=== PATIENT | male | born 1955 | race Caucasian/White ===

== ENCOUNTER 2017-08-10 10:30 | Observation (INO) ==
--- NOTE | 2017-08-10 11:00 | Emergency Department Note ---
Disposition Clinical Impression: Chest pain, Pulmonary nodule Disposition: Admitted As Inpatient Condition: Undetermined General Adult HPI - General Chief complaint: ED Chest Pain Stated complaint: CP Time Seen by Provider: 08/10/17 10:54 Source: patient, family Limitations: no limitations - History of Present Illness Pain Scale: 5 - Related Data Home Medications Medication Instructions Recorded Confirmed Carvedilol [Coreg] 6.25 mg PO BID 10/15/15 08/10/17 Aspirin 325 mg PO BID 08/10/17 08/10/17 Allergies Allergy/AdvReac Type Severity Reaction Status Date / Time Penicillins Allergy Rash Verified 08/10/17 10:35 Past Medical History - Past Medical History Medical history: Reports: coronary artery disease, hyperlipidemia, hypertension , kidney stones, myocardial infarction, valvular heart disease Surgical history: Reports: other Psychiatric history: Reports: no psych history - Social History Smoking Status: Former smoker Smokeless Tobacco Status: No Alcohol use: Reports: none Drug use: Reports: none Physical Exam - General Limitations: no limitations General appearance: alert, in no apparent distress Course Vital Signs Temperature 97.7 F 08/10/17 10:35 Pulse Rate 71 08/10/17 10:35 Respiratory Rate 16 08/10/17 10:35 Blood Pressure 175/91 08/10/17 10:35 O2 Sat by Pulse Oximetry 96 08/10/17 10:35 Temperature 98.7 F 08/10/17 15:43 Pulse Rate 67 08/10/17 15:43 Respiratory Rate 14 08/10/17 15:43 Blood Pressure 152/83 08/10/17 15:43 O2 Sat by Pulse Oximetry 93 08/10/17 15:43 Oxygen Delivery Oxygen Delivery Room Air Medical Decision Making - Lab Data Result diagrams: 08/10/17 11:44 08/10/17 11:44 Lab Results 08/10/17 08/10/17 08/10/17 Range/Units 11:44 11:44 11:44 WBC 7.8 (4.3-11.1) K/mcL RBC 5.41 (4.19-5.50) M/mcL Hgb 15.2 (12.9-16.9) g/dL Hct 45.1 (37.5-50.1) % MCV 83.4 (83.0-100.0) fL MCH 28.1 (28.0-33.3) pg MCHC 33.7 (31.6-35.5) g/dL RDW 13.6 (11.5-14.5) % Plt Count 234 (140-400) K/mcL MPV 9.4 (9.4-12.4) fL Immature Gran % 0.4 (0-4) % Seg Neutrophils % 61.8 % Lymphocytes % 24.9 % Monocytes % 9.2 % Eosinophils % 3.2 % Basophils % 0.5 % Neutrophils # 4.8 (1.6-8.9) K/mcL Lymphocytes # 1.9 (0.6-4.6) K/mcL Monocytes # 0.7 (0.0-1.3) K/mcL Eosinophils # 0.3 (0.0-0.6) K/mcL Basophils # 0.0 (0.0-0.2) K/mcL PT 12.0 (9.4-12.1) Seconds INR 1.1 APTT 28.0 (26.0-36.0) Seconds D-Dimer 807 H (0-500) ng/mLFEU Sodium 139 (136-145) mEq/L Potassium 4.0 (3.5-5.1) mEq/L Chloride 106 (98-107) mEq/L Carbon Dioxide 23 (23-29) mEq/L BUN 18 (8-23) mg/dL Creatinine 1.11 (0.70-1.30) mg/dL Est GFR ( Amer) > 60 (> 60) Est GFR (Non-Af Amer) > 60 (> 60) BUN/Creatinine Ratio 16 (6-26) Glucose 152 H (70-105) mg/dL Calculated Osmolality 293 (280-300) Calcium 9.3 (8.6-10.3) mg/dL Troponin I < 0.03 (< 0.04) ng/mL Attestation Statement - Attestation Attestation: I examined this patient and my medical decision-making was reviewed with the Resident Physician. I agree with the documented findings, disposition and treatment plan as described except to the extent set forth below. Face to face time provided Patient to ED with CP and SOB. H/O previous OR x 2. ECG reviewed by me. Patient in NAD on exam
[2017-08-10] MEDS ORDERED: Aspirin 325 MG TABLET PO ONE (11:01)
--- NOTE | 2017-08-10 11:08 | Emergency Department Note ---
Disposition Clinical Impression: Pulmonary nodule Chest pain Qualifiers: Chest pain type: unspecified Qualified Code(s): R07.9 - Chest pain, unspecified Disposition: Admitted As Inpatient Condition: Undetermined Referrals: Shyam Diaz MD [Non-Partnered Physician] - Forms: ED Satisfaction Letter Time of Disposition: 13:48 Chest Pain HPI - General Chief Complaint: ED Chest Pain Stated Complaint: CP Time Seen by Provider: 08/10/17 10:54 Source: patient, family Mode of arrival: ambulatory Limitations: no limitations Vital Signs Reviewed: Yes Nursing Notes Reviewed: Yes - History of Present Illness HPI Narrative: 62-year-old male with history of MD in the past, hypertension, arrives to the emergency department with complaint of chest pain. The patient states is normal for the past week but is acutely worsened overnight. The patient has associated shortness of breath. The patient's extremities were department to the emergency department was the chest pain radiating to across his chest from the left side to the right side. The patient states he has had chest pain like this before but says little bit different than his previous MD but he states his MIs were a number of years ago. The patient denies any other complaints other than exacerbation of the pain when he is ambulating or working hard. He states that he is feeling very fatigued. He denies any other complaints at this time. This includes hemoptysis, unilateral leg swelling, history of DVT or PE, recent surgeries, recent immobilizations. The patient was noted to be hypoxic with a O2 saturation 92% on examination. He denies any other complaints at this time. Severity scale (1-10): 5 - Related Data Home Medications Medication Instructions Recorded Confirmed ASA/Calcium Carb/Mag/Al Hydrox 500 mg PO Q6H PRN 10/15/15 10/15/15 [Clyde Plus 500 mg Caplet] Carvedilol [Coreg] 6.25 mg PO BIDWM 10/15/15 10/15/15 Previous Rx's Medication Instructions Recorded OxyCODONE/APAP 5/325 [Percocet 1 each PO Q4HR #10 tablet 10/06/15 5/325 MG] Naproxen [Naprosyn] 500 mg PO BID #30 tablet 10/12/15 Ciprofloxacin [Cipro] 500 mg PO ONCE #1 tablet 10/15/15 Docusate [Colace] 100 mg PO BID #2 capsule 10/15/15 Oxycodone HCl/Acetaminophen 1 each PO Q4HR PRN #30 tablet 10/15/15 [Percocet 7.5-325 mg Tablet] Phenazopyridine HCl [Pyridium] 200 mg PO TIDAC #12 tab 10/15/15 predniSONE [PredniSONE] 40 mg PO BIDWM 4 Days tablet 12/18/15 Allergies Allergy/AdvReac Type Severity Reaction Status Date / Time Penicillins Allergy Rash Verified 08/10/17 10:35 All systems ED: reviewed and negative except as stated. Constitutional: Denies: fever, chills ENT ED: Denies: congestion Cardiovascular: Reports: chest pain, dyspnea on exertion. Denies: orthopnea, edema, syncope Respiratory: Reports: dyspnea. Denies: cough, wheezes Gastrointestinal: Denies: abdominal pain, nausea, vomiting Genitourinary: Denies: urgency, dysuria Musculoskeletal: Denies: back pain Integumentary: Denies: rash Neurological: Denies: headache Chest Pain PMH - Past Medical History Medical history: Reports: coronary artery disease, hyperlipidemia, hypertension , kidney stones, myocardial infarction, valvular heart disease Surgical history: Reports: non-contributory, other Psychiatric history: Reports: no psych history - Social History Smoking Status: Former smoker Alcohol use: Reports: none Drug use: Reports: none Physical Exam - General Limitations: no limitations General appearance: alert, in no apparent distress - Head Head exam: atraumatic, normocephalic, normal inspection - Eye Eye exam: Present: normal appearance, PERRL, EOMI - ENT ENT exam: normal exam, normal oropharynx, mucous membranes moist - Neck Neck exam: Present: normal inspection, full ROM, trachea midline - Chest Chest inspection: Present: normal inspection, symmetric chest wall rise - Respiratory Respiratory exam: Present: normal lung sounds bilaterally - Cardiovascular Cardiovascular exam: Present: regular rate, normal rhythm, normal heart sounds, systolic murmur (Grade 1) - Abdominal Exam Abdominal exam: Present: soft, Non-Tender. Absent: tenderness, distention, guarding, rebound, rigidity - Extremities Exam Extremities exam: Present: normal inspection - Back Exam Back exam: Present: normal inspection, full ROM. Absent: tenderness - Neurological Exam Neurological exam: Present: alert, oriented X3 - Skin Skin exam: Present: warm, dry, intact, normal color Course Vital Signs Temperature 97.7 F 08/10/17 10:35 Pulse Rate 71 08/10/17 10:35 Respiratory Rate 16 08/10/17 10:35 Blood Pressure 175/91 08/10/17 10:35 O2 Sat by Pulse Oximetry 96 08/10/17 10:35 Temperature 97.7 F 08/10/17 10:35 Pulse Rate 69 08/10/17 13:17 Respiratory Rate 16 08/10/17 10:35 Blood Pressure 170/95 08/10/17 13:17 O2 Sat by Pulse Oximetry 96 08/10/17 10:35 Oxygen Delivery Oxygen Delivery Room Air Chest Pain - MDM Narrative Medical decision making narrative: Patient's workup in the emergency department demonstrates no acute process. Patient does have pulmonary nodules noted on examination he was notified. He will follow-up with his PCP with regards to this. Patient's workup demonstrates no elevation in troponin or EKG changes. The patient did have a mildly elevated d-dimer but his CTA demonstrates no pulmonary embolus. We will admit the patient to the hospital at this time. He is resting comfortably in the room. patient made aware and agrees to plan. - Lab Data Lab results reviewed: Yes I reviewed the patient's lab results. Result diagrams: 08/10/17 11:44 08/10/17 11:44 Lab Results 08/10/17 08/10/17 08/10/17 Range/Units 11:44 11:44 11:44 WBC 7.8 (4.3-11.1) K/mcL RBC 5.41 (4.19-5.50) M/mcL Hgb 15.2 (12.9-16.9) g/dL Hct 45.1 (37.5-50.1) % MCV 83.4 (83.0-100.0) fL MCH 28.1 (28.0-33.3) pg MCHC 33.7 (31.6-35.5) g/dL RDW 13.6 (11.5-14.5) % Plt Count 234 (140-400) K/mcL MPV 9.4 (9.4-12.4) fL Immature Gran % 0.4 (0-4) % Seg Neutrophils % 61.8 % Lymphocytes % 24.9 % Monocytes % 9.2 % Eosinophils % 3.2 % Basophils % 0.5 % Neutrophils # 4.8 (1.6-8.9) K/mcL Lymphocytes # 1.9 (0.6-4.6) K/mcL Monocytes # 0.7 (0.0-1.3) K/mcL Eosinophils # 0.3 (0.0-0.6) K/mcL Basophils # 0.0 (0.0-0.2) K/mcL PT 12.0 (9.4-12.1) Seconds INR 1.1 APTT 28.0 (26.0-36.0) Seconds D-Dimer 807 H (0-500) ng/mLFEU Sodium 139 (136-145) mEq/L Potassium 4.0 (3.5-5.1) mEq/L Chloride 106 (98-107) mEq/L Carbon Dioxide 23 (23-29) mEq/L BUN 18 (8-23) mg/dL Creatinine 1.11 (0.70-1.30) mg/dL Est GFR ( Amer) > 60 (> 60) Est GFR (Non-Af Amer) > 60 (> 60) BUN/Creatinine Ratio 16 (6-26) Glucose 152 H (70-105) mg/dL Calculated Osmolality 293 (280-300) Calcium 9.3 (8.6-10.3) mg/dL Troponin I < 0.03 (< 0.04) ng/mL - Radiology Data Radiology results reviewed: Yes I reviewed the patient's radiology results. Chest X-Ray 08/10/17 10:40 IMPRESSION: 1. No acute cardiopulmonary disease 2. Chronic elevation of the left diaphragm D/ / Igor Rubio MD / Igor Rubio MD Interpreting Provider: Igor Rubio MD Chest CTA 08/10/17 12:20 IMPRESSION: 1. No evidence of pulmonary embolism 2. Multiple noncalcified pulmonary nodules which are new since 2005. Primary considerations are granulomas and metastatic disease. Recommend correlation with any history of malignancy. PET-CT may be helpful for further evaluation 3. Mild mediastinal and hilar adenopathy which appears unchanged D/ / Igor Rubio MD / Igor Rubio MD Interpreting Provider: Igor Rubio MD - EKG Data EKG attestation: Yes I reviewed and interpreted this EKG. EKG results narrative: Heart rate 67 bpm. Normal sinus rhythm. No ST elevation or ST depression noted. Q waves noted in lead 3. EKG overall identical to EKG of from 2009. No acute changes noted.
[2017-08-10] MEDS ORDERED: Naloxone 0.4 MG/ML INJ IVP PRN (11:17)
--- NOTE | 2017-08-10 11:30 | Internal Med History&Physical ---
Date of Encounter: 08/10/17 Time of Encounter: 11:27 Internal Medicine - H&P: HPI Chief complaint: chest pain Admitted From: Emergency Dept Plans for Post Hospital Care: Home History of present illness: Mr. Spear is a 62 year old male who has background medical history of hypertension, hyperlipidemia, coronary artery disease, previous myocardial infarction, morbid obesity and possible GEORGE. Plan patient has ongoing chest pain for more than a 1 week. In last 24 hours pain was gradually worsening. Noted that patient has a left-sided precordial chest pain. This pain radiates to his jaw and occasionally to his shoulder. Patient claims that the pain gets worse upon activity and exertion and relieved by rest. Patient denies nausea, vomiting, shortness of breath, dizziness and diarrhea. Patient came to emergency room in view of the persistent chest pain. Patient has a manager sas that is Dr. Christy but patient does not have any primary care provider. Workup in the emergency room: Patient was evaluated in the emergency room. Baseline labs were drawn. Chest x-ray was done. Heart score: 3. Reason for admission: Chest pain to rule out ACS. Past Med Surg Social Fam HX - Past Medical History Medical history: coronary artery disease, hyperlipidemia, hypertension, kidney stones, myocardial infarction, valvular heart disease Psychiatric history: no psych history - Past Surgical History Surgical History: non-contributory, other - Social History Smoking Status: Former smoker Smokeless Tobacco Status: No Alcohol use: none Drug use: none Internal Medicine - H&P: Meds OxyCODONE/APAP 5/325 [Percocet 5/325 MG] 1 each PO Q4HR #10 tablet 10/06/15 [Rx] Naproxen [Naprosyn] 500 mg PO BID #30 tablet 10/12/15 [Rx] ASA/Calcium Carb/Mag/Al Hydrox [Clyde Plus 500 mg Caplet] 500 mg PO Q6H PRN 11/22 [History] Carvedilol [Coreg] 6.25 mg PO BIDWM 10/15/15 [History] Ciprofloxacin [Cipro] 500 mg PO ONCE #1 tablet 10/15/15 [Rx] Docusate [Colace] 100 mg PO BID #2 capsule 10/15/15 [Rx] Oxycodone HCl/Acetaminophen [Percocet 7.5-325 mg Tablet] 1 each PO Q4HR PRN #30 tablet 10/15/15 [Rx] Phenazopyridine HCl [Pyridium] 200 mg PO TIDAC #12 tab 10/15/15 [Rx] predniSONE [PredniSONE] 40 mg PO BIDWM 4 Days tablet 12/18/15 [Rx] 3 Allergy/AdvReac Type Severity Reaction Status Date / Time Penicillins Allergy Rash Verified 08/10/17 10:35 All Systems PM: A 10-system review of systems was performed and is negative for pertinent findings except as documented above in the HPI. - Constitutional Constitutional: no chills, no fever(s), no night sweats - EENT Eyes: no change in vision, no discharge, no pain, no photophobia Ears: no ear discharge, no ear pain, no tinnitus Nose, mouth and throat: no dysphagia, no nasal discharge, no neck pain, no sore throat - Cardiovascular Cardiovascular ROS IM: chest pain, no diaphoresis, no dyspnea, no lightheadedness, no palpitations, no syncope - Respiratory Respiratory: no cough, no dyspnea, no wheezing, no excessive phlegm production - Gastrointestinal Gastrointestinal: no abdominal pain, no diarrhea, no hematemesis, no hematochezia, no melena, no nausea, no vomiting - Musculoskeletal Musculoskeletal ROS IM: no numbness, no tingling - Integumentary Integumentary IM: no rash, no unusual bruising - Neurological Neurological ROS: no confusion, no convulsions, no focal weakness, no numbness, no tingling, no tremor(s) - Hematologic/Lymphatic Hematologic/Lymphatic: no easy bruising - Constitutional Vitals: Temp Pulse Resp BP Pulse Ox 97.7 F 71 16 175/91 96 08/10/17 10:35 08/10/17 10:35 08/10/17 10:35 08/10/17 10:35 08/10/17 10:35 General appearance: Present: A&O X 3, pleasant, no acute distress, answers questions appropriately - Head Head exam: Present: atraumatic, normocephalic - Eye Eye exam: Present: PERRL, conjuntiva pink, sclera anicteric Pupils: Present: PERRL - Neck Neck exam general surgery: Present: supple, trachea midline. Absent: lymphadenopathy - Respiratory Respiratory exam: Present: CTAB. Absent: accessory muscle use, rales, rhonchi, wheezes - Cardiovascular Cardiovascular exam: Present: RRR, +S1, +S2. Absent: diastolic murmur, gallop, rubs, systolic murmur - GI/Abdominal GI/Abdominal exam: Present: normal bowel sounds, soft, no peritoneal signs. Absent: distended, tenderness - Extremities Exam Extremities exam: Present: warm, radial pulses palpable and symmetrical. Absent : calf tenderness, cyanotic, pedal edema - Neurological Exam Neurological exam: Present: CN II-XII intact, oriented X3, no focal deficits. Absent: pronater drift, facial droop, speech deficit - Skin Skin exam: Present: dry, intact Internal Med - H&P Results - Impressions ITS Impressions Chest X-Ray 08/10/17 10:40 IMPRESSION: 1. No acute cardiopulmonary disease 2. Chronic elevation of the left diaphragm D/ / Igor Rubio MD / Igor Rubio MD Interpreting Provider: Igor Rubio MD - Assessment and plan (1) Chest pain Current Visit: Yes Status: Acute Assessment and plan: 62/male Admitted with chest pain. SYLVIE score: 3. Assessment: Chest pain to rule out ACS. Complex previous cardiac history and has follow up with Dr Christy patient missed few appointments. plan: Admit as observation. Cardiac diet. Nothing by mouth from midnight Cycle troponin. Echocardiogram. Labs tomorrow morning. Aspirin/beta blockers/statin/nitroglycerin. Please consider long-term nitroglycerin if appropriate Please consider cardiology evaluation if any of the tests are abnormal. I have examined this patient in the emergency department room #15. Patient's was at bedside. Plan of care explained to the patient and his . They verbalize understanding. Qualifiers: Chest pain type: unspecified Qualified Code(s): R07.9 - Chest pain, unspecified (2) Hypertension Current Visit: Yes Status: Acute Assessment and plan: Patient is known to have a high blood pressure. At this point we will resume home medication. We will monitor patient's blood pressure very closely. Qualifiers: Hypertension type: essential hypertension Qualified Code(s): I10 - Essential (primary) hypertension (3) Coronary artery disease Current Visit: Yes Status: Acute Assessment and plan: Patient is known to have a coronary artery disease. Patient is a follow-up with cardiology. We will restart all patient's home medication. Close monitoring of the patient in terms of his cardiac status Echocardiogram: 10/15/2015: EF: 60%, normal left ventricular size and systolic function, dilated RV with normal function, aortic sclerosis Qualifiers: Coronary Disease-Associated Artery/Lesion type: [place] artery [place] vs. transplanted heart: [place] heart Associated angina: with stable angina Qualified Code(s): I25.118 - Atherosclerotic heart disease of [place] coronary artery with other forms of angina pectoris (4) Morbid obesity with BMI of 45.0-49.9, adult Current Visit: Yes Status: Acute Assessment and plan: Patient's BMI is 47.5. Patient will get benefit from outpatient bariatric surgery. (5) DVT prophylaxis Current Visit: Yes Status: Acute Assessment and plan: Heparin Medical decision making: This patient has a moderate to severe risk of worsening in spite of being on appropriate medication due to the underlying chronic comorbid conditions. - Time Spent With Patient Total time spent is greater than 50% in coordination of care (as documented) at patient's floor/unit and/or counseling patient:
[2017-08-10] MEDS ORDERED: Nitroglycerin 0.4 MG TAB.SUBL SL PRN (11:37)
[2017-08-10] MEDS: Nitroglycerin 0.4 MG TAB.SUBL SL PRN (11:40)
[2017-08-10 12:05] LABS: Basophils % 0.5 %; Eosinophils # 0.3 K/mcL (0.0-0.6); Eosinophils % 3.2 %; Hematocrit 45.1 % (37.5-50.1); Hemoglobin 15.2 g/dL (12.9-16.9); Immature Granulocytes % 0.4 % (0-4); Lymphocytes # 1.9 K/mcL (0.6-4.6); Lymphocytes % 24.9 %; Mean Corpuscular HGB Conc 33.7 g/dL (31.6-35.5); Mean Corpuscular Hemoglobin 28.1 pg (28.0-33.3); Mean Corpuscular Volume 83.4 fL (83.0-100.0); Mean Platelet Volume 9.4 fL (9.4-12.4); Monocytes # 0.7 K/mcL (0.0-1.3); Monocytes % 9.2 %; Neutrophils # 4.8 K/mcL (1.6-8.9); Platelet Count 234 K/mcL (140-400); Red Blood Count 5.41 M/mcL (4.19-5.50); Red Cell Distribution Width 13.6 % (11.5-14.5); Segmented Neutrophils % 61.8 %
[2017-08-10 12:09] LABS: INR 1.1
[2017-08-10] MEDS ORDERED: Isovue-370 500 ML INFUS..BTL IV ONE (12:20)
[2017-08-10] MEDS ORDERED: 0.9 % Sodium Chloride 1,000 ML IVC ONE (12:20)
[2017-08-10 12:33] LABS: Troponin I < 0.03 ng/mL (< 0.04)
[2017-08-10 12:51] LABS: BUN/Creatinine Ratio 16 (6-26); Blood Urea Nitrogen 18 mg/dL (8-23); Calcium 9.3 mg/dL (8.6-10.3); Carbon Dioxide 23 mEq/L (23-29); Chloride 106 mEq/L (98-107); Glucose 152 mg/dL (70-105); Osmolality,Calculated 293 (280-300); Sodium 139 mEq/L (136-145); eGFR For African Americans > 60 (> 60); eGFR For Non-African Americans > 60 (> 60)
[2017-08-10] MEDS: *HR* Heparin 5,000 UNIT/ML VIAL SQ SCH ×2 (16:01→21:17)
[2017-08-10] MEDS ORDERED: Perflutren Lipid Microsphere 1.3 ML in 0.9 % Sodium Chloride 8.7 ML IVP ONE (18:43)
[2017-08-11 01:48] LABS: Basophils % 0.3 %; Eosinophils # 0.3 K/mcL (0.0-0.6); Hemoglobin 14.1 g/dL (12.9-16.9); Immature Granulocytes % 0.4 % (0-4); Lymphocytes % 27.5 %; Mean Corpuscular HGB Conc 32.8 g/dL (31.6-35.5); Mean Corpuscular Hemoglobin 27.4 pg (28.0-33.3); Mean Corpuscular Volume 83.7 fL (83.0-100.0); Mean Platelet Volume 9.6 fL (9.4-12.4); Monocytes # 0.8 K/mcL (0.0-1.3); Monocytes % 10.6 %; Neutrophils # 4.1 K/mcL (1.6-8.9); Platelet Count 212 K/mcL (140-400); Red Blood Count 5.14 M/mcL (4.19-5.50); Red Cell Distribution Width 13.4 % (11.5-14.5); Segmented Neutrophils % 57.2 %
[2017-08-11 01:53] LABS: INR 1.1; Prothrombin Time 12.2 Seconds (9.4-12.1)
[2017-08-11 01:56] LABS: Activated Partial Thrombo Time 28.5 Seconds (26.0-36.0)
[2017-08-11 02:13] LABS: Alanine Aminotransferase 42 Units/L (7-52); Albumin 3.8 g/dL (3.5-5.7); Albumin/Globulin Ratio 1.2 (1.1-2.2); Alkaline Phosphatase 83 Units/L (34-104); Aspartate Amino Transferase 21 Units/L (13-39); BUN/Creatinine Ratio 17 (6-26); Bilirubin,Total 0.3 mg/dL (0.3-1.0); Blood Urea Nitrogen 19 mg/dL (8-23); Calcium 9.2 mg/dL (8.6-10.3); Carbon Dioxide 24 mEq/L (23-29); Chloride 104 mEq/L (98-107); Chol/HDL Ratio 5.3 (0-4.9); Cholesterol 164 mg/dL (< 200); Globulin 3.1 g/dL (2.4-3.5); Glucose 143 mg/dL (70-105); HDL Cholesterol 31 mg/dL (40-59); Osmolality,Calculated 291 (280-300); Phosphorous 3.7 mg/dL (2.7-4.5); Potassium 3.8 mEq/L (3.5-5.1); Sodium 138 mEq/L (136-145); Total Protein 6.9 g/dL (6.4-8.9); Triglycerides 426 mg/dL (< 150); eGFR For African Americans > 60 (> 60); eGFR For Non-African Americans > 60 (> 60)
[2017-08-11] MEDS: *HR* Heparin 5,000 UNIT/ML VIAL SQ SCH ×3 (06:08→20:05)
--- NOTE | 2017-08-11 06:41 | Electrocardiograph Report ---
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
[2017-08-11] MEDS: Aspirin Enteric Coated 81 MG Tablet PO SCH (08:01)
[2017-08-11] MEDS ORDERED: Regadenoson 0.4 MG/5 ML SYRINGE IVP ONE (10:41)
--- NOTE | 2017-08-11 18:45 | Internal Med Progress Note ---
Date of Encounter: 08/11/17 Time of Encounter: 18:45 - Assessment and plan (1) Chest pain Current Visit: Yes Status: Acute Assessment and plan: Admitted with the chest pain rule out ACS; patient presented originally with symptoms that were of anginal equivalent including left precordial chest pain radiation to the left neck and arm and jaw which is worsened by exertion. chest pain has subsided since admission Multiple risk factors including hypertension, CAD, HLD, obesity, prior NH Troponins trended and found to be negative 3; lab abnormalities identified. Upon lab work Echocardiogram with preserved EF and mild diastolic dysfunction Continue aspirin/beta blockers/statin/nitroglycerin Consider long-term nitroglycerin upon discharge if patient's workup negative Consider cardiology consult depending on results of stress test Remain on telemetry Qualifiers: Chest pain type: unspecified Qualified Code(s): R07.9 - Chest pain, unspecified (2) Hypertension Current Visit: Yes Status: Acute Assessment and plan: History of hypertension, BP currently stable. Resume antihypertensives. Qualifiers: Hypertension type: essential hypertension Qualified Code(s): I10 - Essential (primary) hypertension (3) Coronary artery disease Current Visit: Yes Status: Acute Assessment and plan: Attending cardiac medications Qualifiers: Coronary Disease-Associated Artery/Lesion type: [place] artery [place] vs. transplanted heart: [place] heart Associated angina: with stable angina Qualified Code(s): I25.118 - Atherosclerotic heart disease of [place] coronary artery with other forms of angina pectoris (4) Morbid obesity with BMI of 45.0-49.9, adult Current Visit: Yes Status: Acute Assessment and plan: Discussed lifestyle modifications (5) DVT prophylaxis Current Visit: Yes Status: Acute Assessment and plan: Heparin subcutaneous twice a day - Time Spent With Patient Total time spent is greater than 50% in coordination of care (as documented) at patient's floor/unit and/or counseling patient: 25 - 35 minutes - Subjective Interval history: Mr. Spera is a 62-year-old male with a history of hypertension, HLD, CAD, with prior NH, morbid obesity and possible GEORGE. Patient is reporting chest pain for more than one week. Presented to the ED to 24 hours of worsening chest pain is precordial left-sided with radiation to the left jaw and neck. Being admitted for ACS rule out Patient seen and examined at bedside today denies any current chest pain. Denies any shortness of breath, nausea, vomiting. No city follows with loan originator Dr. Christy. Due to chest pain with anginal equivalents the patient will be undergoing a 2 day stress test. - Constitutional Vitals: Temp Pulse Resp BP Pulse Ox 98 F 90 17 126/74 90 08/11/17 18:37 08/11/17 18:37 08/11/17 18:37 08/11/17 18:37 08/11/17 18:37 General appearance: Present: A&O X 3, pleasant, no acute distress, answers questions appropriately - Head Head exam: Present: atraumatic, normocephalic - Eye Eye exam: Present: PERRL, conjuntiva pink, sclera anicteric Pupils: Present: PERRL - Neck Neck exam general surgery: Present: supple, trachea midline. Absent: lymphadenopathy - Respiratory Respiratory exam: Present: CTAB. Absent: accessory muscle use, rales, rhonchi, wheezes - Cardiovascular Cardiovascular exam: Present: RRR, +S1, +S2. Absent: diastolic murmur, gallop, rubs, systolic murmur - GI/Abdominal GI/Abdominal exam: Present: normal bowel sounds, soft, no peritoneal signs. Absent: distended, tenderness - Extremities Exam Extremities exam: Present: warm, radial pulses palpable and symmetrical. Absent : calf tenderness, cyanotic, pedal edema - Neurological Exam Neurological exam: Present: CN II-XII intact, oriented X3, no focal deficits. Absent: pronater drift, facial droop, speech deficit - Skin Skin exam: Present: dry, intact Internal Medicine: Result - Labs CBC & Chem 7: 08/11/17 00:58 08/11/17 00:58 Labs: Short CBC 08/11/17 Range/Units 00:58 WBC 7.2 (4.3-11.1) K/mcL Hgb 14.1 (12.9-16.9) g/dL Hct 43.0 (37.5-50.1) % Plt Count 212 (140-400) K/mcL Neutrophils # 4.1 (1.6-8.9) K/mcL BMP 08/11/17 00:58 Sodium 138 Potassium 3.8 Chloride 104 Carbon Dioxide 24 BUN 19 Creatinine 1.11 Glucose 143 H Calcium 9.2 Cardiac Enzymes 08/10/17 08/11/17 Range/Units 18:18 00:58 Troponin I < 0.03 < 0.03 (< 0.04) ng/mL Liver Function 08/11/17 Range/Units 00:58 Total Bilirubin 0.3 (0.3-1.0) mg/dL AST 21 (13-39) Units/L ALT 42 (7-52) Units/L Alkaline Phosphatase 83 (34-104) Units/L Albumin 3.8 (3.5-5.7) g/dL - ABG Interpretation ABG results: PT/INR, D-dimer PT 12.2 Seconds (9.4-12.1) H 08/11/17 00:58 D-Dimer 807 ng/mLFEU (0-500) H 08/10/17 11:44 Consult Discharge Plan - Plan Referrals: NONE,PCP [Primary Care Provider] -
[2017-08-12] MEDS: *HR* Heparin 5,000 UNIT/ML VIAL SQ SCH ×3 (06:19→20:03)
[2017-08-12] MEDS: Aspirin Enteric Coated 81 MG Tablet PO SCH (08:03)
--- NOTE | 2017-08-12 09:19 | Internal Med Progress Note ---
Date of Encounter: 08/12/17 Time of Encounter: 07:15 - Assessment and plan (1) Chest pain Current Visit: Yes Status: Acute Assessment and plan: Admitted with the chest pain rule out ACS; patient presented originally with symptoms that were of anginal equivalent including left precordial chest pain radiation to the left neck and arm and jaw which is worsened by exertion. chest pain has subsided since admission. He has had a workup included troponins which were found to be negative 3, TTE with preserved EF and mild diastolic dysfunction. Reports he had some mild chest pressure last night lasting approximately 15 seconds; however, this pressure has not returned. During that experience he did not have any diaphoresis or nausea or shortness of breath. Continue aspirin/beta blockers/statin/nitroglycerin Patient undergoing 2 day stress test. Should undergo second portion of stress test tomorrow. Awaiting results Consider long-term nitroglycerin upon discharge if patient's workup negative Consider cardiology consult depending on results of stress test Remain on telemetry Qualifiers: Chest pain type: unspecified Qualified Code(s): R07.9 - Chest pain, unspecified (2) Hypertension Current Visit: Yes Status: Acute Assessment and plan: History of hypertension, BP has remained stable throughout this stay. Continue antihypertensives. Qualifiers: Hypertension type: essential hypertension Qualified Code(s): I10 - Essential (primary) hypertension (3) Coronary artery disease Current Visit: Yes Status: Acute Assessment and plan: Continue cardiac medications Qualifiers: Coronary Disease-Associated Artery/Lesion type: [place] artery [place] vs. transplanted heart: [place] heart Associated angina: with stable angina Qualified Code(s): I25.118 - Atherosclerotic heart disease of [place] coronary artery with other forms of angina pectoris (4) Morbid obesity with BMI of 45.0-49.9, adult Current Visit: Yes Status: Acute Assessment and plan: Discussed lifestyle modifications (5) DVT prophylaxis Current Visit: Yes Status: Acute Assessment and plan: Heparin subcutaneous twice a day - Time Spent With Patient Total time spent is greater than 50% in coordination of care (as documented) at patient's floor/unit and/or counseling patient: 25 - 35 minutes - Subjective Interval history: Mr. Spear is a 62-year-old male with a history of hypertension, HLD, CAD, with prior [place], morbid obesity and possible GEORGE. Patient is reporting chest pain for more than one week. Presented to the ED to 24 hours of worsening chest pain is precordial left-sided with radiation to the left jaw and neck. Being admitted for ACS rule out Patient seen and examined at bedside today denies any current chest pain. Denies any shortness of breath. Workup throughout the stay has remained unremarkable thus far. Patient underwent stress test yesterday, will need to undergo second stress test on Sunday. No events noted overnight on telemetry. - Constitutional Vitals: Temp Pulse Resp BP Pulse Ox 98.0 F 58 18 147/70 93 08/12/17 06:58 08/12/17 06:58 08/12/17 06:58 08/12/17 06:58 08/12/17 06:58 General appearance: Present: A&O X 3, pleasant, no acute distress, answers questions appropriately - Head Head exam: Present: atraumatic, normocephalic - Eye Eye exam: Present: PERRL, conjuntiva pink, sclera anicteric Pupils: Present: PERRL - Neck Neck exam general surgery: Present: supple, trachea midline. Absent: lymphadenopathy - Respiratory Respiratory exam: Present: CTAB. Absent: accessory muscle use, rales, rhonchi, wheezes - Cardiovascular Cardiovascular exam: Present: RRR, +S1, +S2. Absent: diastolic murmur, gallop, rubs, systolic murmur - GI/Abdominal GI/Abdominal exam: Present: normal bowel sounds, soft, no peritoneal signs. Absent: distended, tenderness - Extremities Exam Extremities exam: Present: warm, radial pulses palpable and symmetrical. Absent : calf tenderness, cyanotic, pedal edema - Neurological Exam Neurological exam: Present: CN II-XII intact, oriented X3, no focal deficits. Absent: pronater drift, facial droop, speech deficit - Skin Skin exam: Present: dry, intact Internal Medicine: Result - Labs CBC & Chem 7: 08/11/17 00:58 08/11/17 00:58 - ABG Interpretation ABG results: PT/INR, D-dimer PT 12.2 Seconds (9.4-12.1) H 08/11/17 00:58 D-Dimer 807 ng/mLFEU (0-500) H 08/10/17 11:44 Consult Discharge Plan - Plan Referrals: NONE,PCP [Primary Care Provider] -
[2017-08-12] MEDS: *HR* HYDROcodone/Acet 5/325 mg TABLET PO PRN (23:29)
[2017-08-13] MEDS ORDERED: Ketorolac 30 MG/ML VIAL IVP ONE (03:23)
[2017-08-13] MEDS: *HR* Heparin 5,000 UNIT/ML VIAL SQ SCH ×3 (05:41→21:12)
[2017-08-13] MEDS: Aspirin Enteric Coated 81 MG Tablet PO SCH ×2 (08:00→17:10)
[2017-08-13] MEDS: *HR* HYDROcodone/Acet 5/325 mg TABLET PO PRN ×2 (08:00→21:18)
--- NOTE | 2017-08-13 10:19 | Internal Med Progress Note ---
Date of Encounter: 08/13/17 Time of Encounter: 09:30 - Assessment and plan (1) Chest pain Current Visit: Yes Status: Acute Assessment and plan: Admitted with the chest pain rule out ACS; patient presented originally with symptoms that were of anginal equivalent. Denies any return of chest pain. Presently ranging hemodynamically stable. I reviewed with no events noted overnight. Troponin negative at 0.03 3 Continue aspirin/beta blockers/statin/nitroglycerin Awaiting results of today's stress test Consider long-term nitroglycerin upon discharge if patient's workup negative Consider cardiology consult depending on results of stress test Remain on telemetry (2) Hypertension Current Visit: Yes Status: Acute Assessment and plan: History of hypertension, BP mildly elevated this morning with SBP in the 150s. Blood pressure has been stable throughout the stay. Continue antihypertensives for now without any changes. Continue to closely monitor. Consider increasing beta miguelina dose if hypertension persists Qualifiers: Hypertension type: essential hypertension Qualified Code(s): I10 - Essential (primary) hypertension (3) Coronary artery disease Current Visit: Yes Status: Acute Assessment and plan: Continue aspirin, statin, beta miguelina, ARB Qualifiers: Coronary Disease-Associated Artery/Lesion type: [place] artery [place] vs. transplanted heart: [place] heart Associated angina: with stable angina Qualified Code(s): I25.118 - Atherosclerotic heart disease of [place] coronary artery with other forms of angina pectoris (4) Morbid obesity with BMI of 45.0-49.9, adult Current Visit: Yes Status: Acute (5) DVT prophylaxis Current Visit: Yes Status: Acute Assessment and plan: Heparin subcutaneous twice a day - Time Spent With Patient Total time spent is greater than 50% in coordination of care (as documented) at patient's floor/unit and/or counseling patient: 25 - 35 minutes - Subjective Interval history: Mr. Spear is a 62-year-old male with a history of hypertension, HLD, CAD, with prior [place], morbid obesity and possible GEORGE. Patient is reporting chest pain for more than one week. Presented to the ED to 24 hours of worsening chest pain is precordial left-sided with radiation to the left jaw and neck. Being admitted for ACS rule out Patient seen and examined at bedside today denies any current chest pain. Denies any shortness of breath. Workup throughout the stay has remained unremarkable thus far. Patient underwent stress test yesterday, and today. Telemetry overnight reviewed and unremarkable. Patient denies any return of chest pain. Reports that he is feeling better today. Awaiting official results of today's stress test. - Constitutional Vitals: Temp Pulse Resp BP Pulse Ox 97.7 F 85 18 157/84 91 08/13/17 08:43 08/13/17 08:43 08/13/17 08:43 08/13/17 08:43 08/13/17 08:43 General appearance: Present: A&O X 3, pleasant, no acute distress, answers questions appropriately - Head Head exam: Present: atraumatic, normocephalic - Eye Eye exam: Present: PERRL, conjuntiva pink, sclera anicteric Pupils: Present: PERRL - Neck Neck exam general surgery: Present: supple, trachea midline. Absent: lymphadenopathy - Respiratory Respiratory exam: Present: CTAB. Absent: accessory muscle use, rales, rhonchi, wheezes - Cardiovascular Cardiovascular exam: Present: RRR, +S1, +S2. Absent: diastolic murmur, gallop, rubs, systolic murmur - GI/Abdominal GI/Abdominal exam: Present: normal bowel sounds, soft, no peritoneal signs. Absent: distended, tenderness - Extremities Exam Extremities exam: Present: warm, radial pulses palpable and symmetrical. Absent : calf tenderness, cyanotic, pedal edema - Neurological Exam Neurological exam: Present: CN II-XII intact, oriented X3, no focal deficits. Absent: pronater drift, facial droop, speech deficit - Skin Skin exam: Present: dry, intact Internal Medicine: Result - Labs CBC & Chem 7: 08/11/17 00:58 08/11/17 00:58 - ABG Interpretation ABG results: PT/INR, D-dimer PT 12.2 Seconds (9.4-12.1) H 08/11/17 00:58 D-Dimer 807 ng/mLFEU (0-500) H 08/10/17 11:44 Consult Discharge Plan - Plan Referrals: Shyam Diaz MD [Non-Partnered Physician] - 08/20/17 4:00 pm
[2017-08-13] MEDS ORDERED: Ketorolac 15 MG/ML VIAL IVP ONE (11:39)
[2017-08-13] MEDS ORDERED: Aspirin 325 MG TABLET PO ONE (16:43)
[2017-08-13] MEDS ORDERED: Aspirin 81 MG TAB.CHEW ONE (16:45)
[2017-08-13] MEDS: Nitroglycerin 0.4 MG TAB.SUBL SL PRN (16:46)
--- NOTE | 2017-08-13 16:46 | Event Note ---
Date of Encounter: 08/13/17 Time of Encounter: 16:43 , The bedside this afternoon as the patient was having sharp precordial chest pain. Chest pain is nonexertional, nonradiating. No diaphoresis but is having some shortness of breath. Per my examination the patient does not appear to be in any distress. EKG was obtained with no changes in comparison to prior EKGs. Normal sinus rhythm without any ST elevation depression or T-wave inversion. Nursing staff has been informed that the patient will be ordered to have a stat troponin. Additionally, during my examination the patient was having left upper quadrant tenderness is reporting pain 8/10 on palpation to left upper quadrant given his current presentation I am also ordering a stat lipase. Continue to follow results
[2017-08-13 17:21] LABS: Lipase 39 Units/L (11-82); Troponin I < 0.03 ng/mL (< 0.04)
[2017-08-14] MEDS: *HR* HYDROcodone/Acet 5/325 mg TABLET PO PRN ×2 (04:37→14:03)
[2017-08-14] MEDS: *HR* Heparin 5,000 UNIT/ML VIAL SQ SCH ×2 (06:10→14:02)
[2017-08-14] MEDS: Aspirin Enteric Coated 81 MG Tablet PO SCH ×2 (08:28→11:16)
[2017-08-14 14:54] VITALS: BP 133/73
[2017-08-14] MEDS ORDERED: traMADol 50 MG TABLET PO ONE (15:05)
--- NOTE | 2017-08-14 15:57 | Discharge Summary ---
- NOTES TO OUTPATIENT PROVIDER Notes to Outpatient Provider: Stress test completed negative for ischemia or infarct- Multiple noncalcified pulmonary nodules which are new since 2005. Primary. considerations are granulomas and metastatic disease- follow up with Oncology - Cardiology Orders not resulted at time of discharge: Pending orders 08/11/17 10:23 NM paige perf SPECT multi [NM] Routine Date of Encounter: 08/14/17 Time of Encounter: 15:55 - Discharge Diagnosis (1) Chest pain Priority: Primary Status: Acute Qualifiers: Chest pain type: unspecified Qualified Code(s): R07.9 - Chest pain, unspecified (2) Hypertension Priority: Secondary Status: Acute Qualifiers: Hypertension type: essential hypertension Qualified Code(s): I10 - Essential (primary) hypertension (3) Coronary artery disease Priority: Secondary Status: Acute Qualifiers: Coronary Disease-Associated Artery/Lesion type: [place] artery [place] vs. transplanted heart: [place] heart Associated angina: with stable angina Qualified Code(s): I25.118 - Atherosclerotic heart disease of [place] coronary artery with other forms of angina pectoris (4) Morbid obesity with BMI of 45.0-49.9, adult Priority: Secondary Status: Acute Hospital course: Mr. Spear is a 62 year old male past medical history of hypertension hyperlipidemia CAD with prior [place] morbid obesity and possible GEORGE. Patient presented to the emergency department after experiencing chest pain for approximately one week describing it as precordial left-sided with radiation to left jaw neck. EKG with no ST-T wave abnormalities troponins have been negative 3 he underwent a 2 day nuclear cardiac stress test which was negative for any ischemia or infarct. Patient did have a CTA in the emergency department -we did show multiple noncalcified pulmonary nodules which are new. I did discuss this with oncology nurse practitioner Tammy Negro who will see patient as an outpatient. Appointment has been made per oncology. I did discuss the results of both the CAT scans and stress test. Patient verbalized understanding. I did advise patient to follow-up with cardiology as well as oncology. I also advised patient to follow-up with primary care physician he may require outpatient for sleep apnea. Patient verbalized understanding. Presently patient is hemodynamically stable, he does have reproducible pain upon palpation on his left breast otherwise he is chest pain-free. The patient is ready for discharge. Discharge discussed with: patient - Time Spent with Patient Total time spent providing and/or coordinating discharge services: Less than 30 minutes - Discharge Medications Prescriptions: Nitroglycerin 0.4 mg SL Q5MIN PRN #30 tab.subl PRN Reason: Chest Pain Atorvastatin [Lipitor] 20 mg PO HS #30 tablet Home Medications: Carvedilol [Coreg] 6.25 mg PO BID 10/15/15 [History] Aspirin 325 mg PO BID 08/10/17 [History] Atorvastatin [Lipitor] 20 mg PO HS #30 tablet 08/14/17 [Rx] Nitroglycerin 0.4 mg SL Q5MIN PRN #30 tab.subl 08/14/17 [Rx] Allergies/Adverse Reactions: 3 Allergy/AdvReac Type Severity Reaction Status Date / Time Penicillins Allergy Rash Verified 08/10/17 10:35 Date of admission: 08/10/17 13:53 Primary care physician: PCP NONE Discharging clinician: Kirstin Arteaga Anticipated date of discharge: 08/14/17 - Constitutional Vitals: Temp Pulse Resp BP Pulse Ox 98.7 F 68 15 133/73 94 08/14/17 14:49 08/14/17 14:49 08/14/17 14:49 08/14/17 14:49 08/14/17 14:49 General appearance: Present: A&O X 3, morbidly obese, pleasant, no acute distress, answers questions appropriately - Head Head exam: Present: atraumatic, normocephalic - Eye Eye exam: Present: PERRL, conjuntiva pink, sclera anicteric Pupils: Present: PERRL - Neck Neck exam general surgery: Present: supple, trachea midline. Absent: lymphadenopathy - Respiratory Respiratory exam: Present: CTAB. Absent: accessory muscle use, rales, rhonchi, wheezes - Cardiovascular Cardiovascular exam: Present: RRR, +S1, +S2. Absent: diastolic murmur, gallop, rubs, systolic murmur - GI/Abdominal GI/Abdominal exam: Present: normal bowel sounds, soft, no peritoneal signs. Absent: distended, tenderness - Extremities Exam Extremities exam: Present: warm, radial pulses palpable and symmetrical. Absent : calf tenderness, cyanotic, pedal edema - Neurological Exam Neurological exam: Present: CN II-XII intact, oriented X3, no focal deficits. Absent: pronater drift, facial droop, speech deficit - Skin Skin exam: Present: dry, intact - Patient Status Disposition: Home, Self-Care Condition: Undetermined - Discharge Instructions Instructions: Chest Pain (DC), Chronic Hypertension (DC) Follow Up With: Shyam Diaz MD [Non-Partnered Physician] - 08/20/17 4:00 pm Bhavik Briceño MD [Partnered Physician] - 08/21/17 1:45 pm Toney Christy DO [Partnered Physician] - (Your appointment has been webrequested,. Our offices will call you appointment time and date) - Diet and Activity Activity: increase activity as tolerated Diet: low fat, low cholesterol
--- NOTE | 2017-08-16 05:22 | Electrocardiograph Report ---
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
== END 2017-08-14 17:05 | disposition home or self-care (01) ==
LOC: 3BNU 10:30 → EMEROO 10:30 → 3BNU 15:07
PROVIDERS: ADMIT Internal Medicine; ATTEND Internal Medicine